=== PATIENT | female | born 1995 | race African-American/Black ===

== ENCOUNTER 2019-04-11 14:10 | Emergency (ER) | payer MEDICAID ==
[~2019-04-11] VITALS: Ht 165.1 cm; Wt 55.9 kg
[2019-04-11 14:27] VITALS: BP 123/71
--- NOTE | 2019-04-11 15:09 | NUR ---
23 Y FEMALE BIB SELF C/O ABD PAIN X6 DAYS. SHARP UPPER ABD PAIN AT 9/10. + N/V/D, AND CHILLS. LAST BM THIS AM, WATERY. ABDOMEN SOFT AND FLAT. BOWEL SOUNDS ACTIVE IN ALL 4 QUADRANTS. TACHY AT 116. PT AA0X4. GAURDING BEHAVIOR. BED IS DOWN, LOCKED, BED RAIL X 1, ERMD TO SEE PT. MEDHX:DENIES RX:DENIES
--- NOTE | 2019-04-11 15:11 | NUR ---
LANS DRAWN BEDSIDE
--- NOTE | 2019-04-11 15:30 | NUR ---
DR HERNANDEZ AT BEDSIDE
[2019-04-11] MEDS ORDERED: LEVOFLOXACIN 500 MG/D5W PREMIX 100 ML IV ONE (15:35)
[2019-04-11] MEDS ORDERED: ONDANSETRON 4 MG/2 ML VIAL IVP ONE (15:35)
--- NOTE | 2019-04-11 15:35 | NUR ---
PT UNABLE TO GIVE URINE
--- NOTE | 2019-04-11 15:46 | NUR ---
PER DR HERNANDEZ VERBAL ORDER, BLOOD CULTURES TO NOT NEED TO BE DRAWN PRIOR TO STARTING LEVAQUIN
[2019-04-11 15:51] LABS: BASOPHILS # (AUTO) 0.1 K/uL (0.00-0.22); EOSINOPHILS # (AUTO) 0.1 K/uL (0-0.4); EOSINOPHILS % (AUTO) 1.3 % (0.0-4.0); HEMATOCRIT 45.9 % (36-48); HEMOGLOBIN 15.2 g/dL (12.0-16.0); LYMPHOCYTES # (AUTO) 1.9 K/uL (2.5-16.5); LYMPHOCYTES % (AUTO) 30.3 % (20.5-51.1); MEAN CORPUSCULAR HEMOGLOBIN 29 pg (27-31); MEAN CORPUSCULAR HGB CONC 33 g/dL (33-37); MEAN CORPUSCULAR VOLUME 88.3 fL (80-94); MONOCYTES # (AUTO) 0.7 K/uL (0.8-1.0); MONOCYTES % (AUTO) 11.6 % (1.7-9.3); NEUTROPHILS # (AUTO) 3.6 K/uL (1.8-7.7); NEUTROPHILS % (AUTO) 55.8 % (42.2-75.2); PLATELET COUNT (AUTO) 284 K/uL (140-450); RED CELL DISTRIBUTION WIDTH 12.8 % (11.6-13.7); WHITE BLOOD COUNT (AUTO) 6.4 K/uL (4.8-10.8)
--- NOTE | 2019-04-11 15:51 | NUR ---
LIGHTS TURNED OFF FOR PT COMFORT. PAIN 07/10. DR HERNANDEZ NOTIFIED
[2019-04-11] MEDS ORDERED: MORPHINE SULFATE 4 MG/ML SYR IVP ONE (16:00)
--- NOTE | 2019-04-11 16:13 | NUR ---
MORPHINE IVP ADMINISTERED. VSS AT THIS TIME.
[2019-04-11 16:19] LABS: ALBUMIN 4.9 g/dL (3.4-5.0); CARBON DIOXIDE 31.6 mmol/L (21-32); CREATININE 1.1 mg/dL (0.6-1.3); TOTAL BILIRUBIN 1.5 mg/dL (0.0-1.0)
[2019-04-11 16:22] LABS: POTASSIUM 2.6 mmol/L (3.5-5.1)
[2019-04-11] MEDS ORDERED: POTASSIUM CHLORIDE 10 MEQ TABER PO ONE (16:35)
--- NOTE | 2019-04-11 18:10 | NUR ---
PATIENT UNABLE TO GIVE URINE AT THIS TIME
[2019-04-11 18:16] VITALS: BP 124/87
--- NOTE | 2019-04-11 18:18 | NUR ---
VSS AT THIS TIME. PAIN 03/10. PT AA0X4. LAYING IN BED.
--- NOTE | 2019-04-11 18:55 | NUR ---
Patient discharged BY DR HERNANDEZ. Patient alert, oriented and Ambulatory with steady gait. ID band removed. Rx of CIPRO AND ZOFRAN given.
== END 2019-04-11 18:55 | disposition home or self-care (01) ==
LOC: MED 14:10
DX: A09 Infectious gastroenteritis and colitis, unspecified (principal)
CPT/HCPCS: 36415; 80053; 82150; 83690; 85025; 96365; 96375; 99283; J1956; J2270; J2405

== ENCOUNTER 2019-04-12 20:43 | Emergency (ER) | payer MEDICAID ==
[~2019-04-12] VITALS: Ht 165.1 cm; Wt 55.8 kg
[2019-04-12 21:04] VITALS: BP 126/56
--- NOTE | 2019-04-12 21:06 | NUR ---
TO LOBBY A/W BED, AMBULATORY WITH MOTHER
--- NOTE | 2019-04-12 21:25 | NUR ---
PT TAKEN TO BED 8
--- NOTE | 2019-04-12 21:35 | NUR ---
PATIENT IS A 24 Y/O FEMALE WHO PRESENTS TO THE ED C/O VOMITING. PT STATES THAT SYMPTOMS HAVE BEEN GOING ON X7 DAYS. PT REPORTS 7/10 ACHING ABD PAIN THAT DOES NOT RADIATE. PT DENIES CP, SOB, REPORTS NAUSEA/VOMITING DENIES DIARRHEA. PT WAS SEEN IN ED YESTERDAY AND GIVEN RX OF ZOFRAN AND CIPRO WITH NO RELIEF. PT AWAKE AND ALERT, RR EVEN/UNLABORED. PT REPOSITIONED FOR COMFORT, BED IN LOWEST POSITION. ER MD DR. HERNANDEZ NOTIFIED. WILL CONTINUE TO MONITOR. PMH---GI PROBLEMS NKA
--- NOTE | 2019-04-12 21:40 | NUR ---
PT GIVEN URINE CUP. PATIENT MADE AWARE ABOUT REQUIRING URINE SAMPLE. PT STATES SHE IS UNABLE TO VOID AT THIS TIME.
--- NOTE | 2019-04-12 22:20 | NUR ---
Dr. Dooley examining patient.
[2019-04-12] MEDS ORDERED: LIDOCAINE VISCOUS 2% 20 ML UDC PO ONE (22:30)
[2019-04-12] MEDS ORDERED: ALUMINUM HYD/MAG/SIMETHICONE 30 ML UDC PO ONE (22:30)
[2019-04-12] MEDS ORDERED: NACL 0.9% 1,000 ML IV ONE ×2 (22:30→23:55)
[2019-04-12] MEDS ORDERED: DICYCLOMINE 20 MG/2 ML VIAL IM ONE (22:30)
[2019-04-12] MEDS ORDERED: ONDANSETRON 4 MG/2 ML VIAL IVP ONE (22:30)
[2019-04-12] MEDS ORDERED: ONDANSETRON 4 MG/2 ML VIAL ONE (22:50)
[2019-04-12 23:09] LABS: BASOPHILS # (AUTO) 0.1 K/uL (0.00-0.22); BASOPHILS % (AUTO) 1.1 % (0.0-2.0); EOSINOPHILS # (AUTO) 0.1 K/uL (0-0.4); EOSINOPHILS % (AUTO) 1.6 % (0.0-4.0); HEMATOCRIT 44.9 % (36-48); LYMPHOCYTES # (AUTO) 1.6 K/uL (2.5-16.5); LYMPHOCYTES % (AUTO) 31.3 % (20.5-51.1); MEAN CORPUSCULAR HEMOGLOBIN 30 pg (27-31); MEAN CORPUSCULAR HGB CONC 33 g/dL (33-37); MEAN CORPUSCULAR VOLUME 88.4 fL (80-94); MONOCYTES # (AUTO) 0.7 K/uL (0.8-1.0); MONOCYTES % (AUTO) 13.3 % (1.7-9.3); NEUTROPHILS # (AUTO) 2.7 K/uL (1.8-7.7); NEUTROPHILS % (AUTO) 52.7 % (42.2-75.2); PLATELET COUNT (AUTO) 262 K/uL (140-450); RED BLOOD CELL COUNT(AUTO) 5.08 MIL/uL (4.20-5.40); RED CELL DISTRIBUTION WIDTH 12.7 % (11.6-13.7); WHITE BLOOD COUNT (AUTO) 5.1 K/uL (4.8-10.8)
[2019-04-12 23:38] LABS: ANION GAP 14.4 (8-16); CARBON DIOXIDE 32.7 mmol/L (21-32); CREATININE 1.3 mg/dL (0.6-1.3); POTASSIUM 3.1 mmol/L (3.5-5.1)
[2019-04-12 23:43] LABS: ALBUMIN 4.7 g/dL (3.4-5.0); TOTAL BILIRUBIN 1.3 mg/dL (0.0-1.0)
--- NOTE | 2019-04-13 00:15 | NUR ---
PATIENT PROVIDED URINE AT THIS TIME.
--- NOTE | 2019-04-13 00:26 | NUR ---
PT TAKEN TO CT
[2019-04-13 00:31] LABS: APPEARANCE,URINE HAZY (CLEAR); BILIRUBIN,URINE 1+ (NEGATIVE); BLOOD, URINE NEGATIVE (NEGATIVE); COLOR,URINE YELLOW (YELLOW); LEUKOCYTE ESTERASE ,URINE NEGATIVE (NEGATIVE); NITRITE, URINE NEGATIVE (NEGATIVE); UGLUCOSE NEGATIVE (NEGATIVE)
--- NOTE | 2019-04-13 00:37 | NUR ---
PT RETURN FROM CT
[2019-04-13 00:46] LABS: RBC,URINE 0-5 /HPF (0-5)
--- NOTE | 2019-04-13 01:07 | NUR ---
PATIENT RESTING AT THIS TIME. NO SIGNS OF DISTRESS.
--- NOTE | 2019-04-13 01:30 | NUR ---
ALL RESULTS BACK AND NOTED BY ERMD AND FOR D/C.
[2019-04-13] MEDS ORDERED: POTASSIUM CHLORIDE 10 MEQ TABER PO ONE (01:35)
[2019-04-13 02:40] VITALS: BP 118/76
--- NOTE | 2019-04-13 02:40 | NUR ---
Patient discharged with v/s stable. Written and verbal after care instructions given and explained. Patient alert, oriented and verbalized understanding of instructions. Ambulatory with by parent. All questions addressed prior to discharge. ID band removed. Patient advised to follow up with PMD. Rx of ZOFRAN 4 MG ODT given. Patient educated on indication of medication including possible reaction and side effects. Opportunity to ask questions provided and answered.
== END 2019-04-13 02:40 | disposition home or self-care (01) ==
LOC: MED 20:43
DX: N39.0 Urinary tract infection, site not specified (principal); R10.84 Generalized abdominal pain; R11.2 Nausea with vomiting, unspecified; G89.29 Other chronic pain
CPT/HCPCS: 36415; 74177; 80053; 81001; 81025; 83690; 85025; 87086; 96361; 96372; 96374; 99284; J0500; J2405; J7030; Q9967; 96360

== ENCOUNTER 2019-06-14 22:27 | Emergency (ER) | payer MEDICAID, OTHER ==
[~2019-06-14] VITALS: Ht 165.1 cm; Wt 61.7 kg
[2019-06-14 22:40] VITALS: BP 131/59
--- NOTE | 2019-06-14 22:43 | NUR ---
TO LOBBY A/W BED VIA WHEELCHAIR
[2019-06-14] MEDS ORDERED: ONDANSETRON 4 MG ODT PO ONE (23:00)
--- NOTE | 2019-06-14 23:15 | NUR ---
PT TAKEN TO BED 12 BY WHEELCHAIR.
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
--- NOTE | 2019-06-14 23:38 | NUR ---
PHLEB AT BEDSIDE DRAWING LABS.
[2019-06-14] MEDS ORDERED: NACL 0.9% 1,000 ML IV ONE (23:55)
[2019-06-14] MEDS ORDERED: ONDANSETRON 4 MG/2 ML VIAL IVP ONE (23:55)
[2019-06-14 23:58] LABS: HEMATOCRIT 39.8 % (36-48); HEMOGLOBIN 13.3 g/dL (12.0-16.0); MEAN CORPUSCULAR HEMOGLOBIN 30 pg (27-31); MEAN CORPUSCULAR HGB CONC 34 g/dL (33-37); MEAN CORPUSCULAR VOLUME 89.1 fL (80-94); PLATELET COUNT (AUTO) 246 K/uL (140-450); RED BLOOD CELL COUNT(AUTO) 4.46 MIL/uL (4.20-5.40); RED CELL DISTRIBUTION WIDTH 12.8 % (11.6-13.7); WHITE BLOOD COUNT (AUTO) 8.4 K/uL (4.8-10.8)
[2019-06-15 00:12] LABS: ANION GAP 17.8 (8-16); CARBON DIOXIDE 23.8 mmol/L (21-32); POTASSIUM 3.6 mmol/L (3.5-5.1)
[2019-06-15 00:19] LABS: ALBUMIN 4.5 g/dL (3.4-5.0); TOTAL BILIRUBIN 0.7 mg/dL (0.0-1.0)
[2019-06-15 00:25] LABS: LYMPHOCYTES % (MANUAL) 9 % (20-46); MONOCYTES % (MANUAL) 2 % (5-12)
[2019-06-15] MEDS ORDERED: MORPHINE SULFATE 4 MG/ML SYR IVP ONE (01:15)
[2019-06-15 02:45] VITALS: BP 126/75
--- NOTE | 2019-06-15 02:45 | NUR ---
Patient discharged with v/s stable. Written and verbal after care instructions given and explained. Patient alert, oriented and verbalized understanding of instructions. Ambulatory with steady gait. All questions addressed prior to discharge. ID band removed. Patient advised to follow up with PMD. Rx of Motrin, Zofran, [place] given. Patient educated on indication of medication including possible reaction and side effects. Opportunity to ask questions provided and answered.
== END 2019-06-15 02:45 | disposition home or self-care (01) ==
LOC: MED 22:27
DX: R10.30 Lower abdominal pain, unspecified (principal); R11.2 Nausea with vomiting, unspecified; R50.9 Fever, unspecified; M54.9 Dorsalgia, unspecified; R19.7 Diarrhea, unspecified
CPT/HCPCS: 36415; 80053; 81002; 81025; 83690; 85025; 96361; 96374; 96375; 99283; J2270; J2405; J7030; Q0162

== ENCOUNTER 2020-08-05 12:38 | Emergency (ER) | payer MEDICAID, OTHER ==
[~2020-08-05] VITALS: Ht 165.1 cm; Wt 60.5 kg
[2020-08-05 13:05] VITALS: BP 135/100
--- NOTE | 2020-08-05 13:13 | NUR ---
VSS. HANDED ON URINE CUP. WAIT AT LOBBY.
--- NOTE | 2020-08-05 14:30 | NUR ---
25 y/o female c/o abdominal pain 06/10 X1 week. Pt states N/V x1 week, unable to eat or drink anything. Pt states she was hospitalized X2days ago, prescribed omeprazole, no relief. Abdomen is flat, soft tender at RUQ and LUQ. Pt is guarding. Last BM about 1 week ago, bowel sounds are present. Denies PMH, RX. NKA
[2020-08-05 14:45] LABS: BASOPHILS # (AUTO) 0.1 K/uL (0.00-0.22); EOSINOPHILS # (AUTO) 0.1 K/uL (0-0.4); EOSINOPHILS % (AUTO) 2.2 % (0.0-4.0); HEMATOCRIT 46.9 % (36-48); HEMOGLOBIN 15.5 g/dL (12.0-16.0); LYMPHOCYTES # (AUTO) 2.3 K/uL (2.5-16.5); LYMPHOCYTES % (AUTO) 36.5 % (20.5-51.1); MEAN CORPUSCULAR HEMOGLOBIN 29 pg (27-31); MEAN CORPUSCULAR HGB CONC 33 g/dL (33-37); MONOCYTES # (AUTO) 0.9 K/uL (0.8-1.0); MONOCYTES % (AUTO) 14.2 % (1.7-9.3); NEUTROPHILS # (AUTO) 2.9 K/uL (1.8-7.7); NEUTROPHILS % (AUTO) 46.1 % (42.2-75.2); PLATELET COUNT (AUTO) 268 K/uL (140-450); RED BLOOD CELL COUNT(AUTO) 5.33 MIL/uL (4.20-5.40); RED CELL DISTRIBUTION WIDTH 12.3 % (11.6-13.7); WHITE BLOOD COUNT (AUTO) 6.2 K/uL (4.8-10.8)
[2020-08-05 14:49] LABS: APPEARANCE,URINE HAZY (CLEAR); BILIRUBIN,URINE 1+ (NEGATIVE); BLOOD, URINE TRACE-I (NEGATIVE); COLOR,URINE YELLOW (YELLOW); LEUKOCYTE ESTERASE ,URINE NEGATIVE (NEGATIVE); NITRITE, URINE NEGATIVE (NEGATIVE); PH,URINE 5.5 (5.0-9.0); UGLUCOSE NEGATIVE (NEGATIVE)
[2020-08-05] MEDS ORDERED: ONDANSETRON 4 MG ODT PO ONE (14:50)
--- NOTE | 2020-08-05 14:54 | NUR ---
Dr Parsons at bedside examining patient
[2020-08-05 14:57] LABS: ALBUMIN 4.9 g/dL (3.4-5.0); ANION GAP 14.4 (8-16); CARBON DIOXIDE 32.1 mmol/L (21-32); CREATININE 0.9 mg/dL (0.6-1.3); POTASSIUM 3.5 mmol/L (3.5-5.1); TOTAL BILIRUBIN 1.3 mg/dL (0.0-1.0)
[2020-08-05] MEDS ORDERED: HALOPERIDOL IM 5 MG/ML VIAL IM STA (14:58)
--- NOTE | 2020-08-05 15:00 | NUR ---
Pt to xray via wheelchair
[2020-08-05 15:08] LABS: WBC,URINE 0-5 /HPF (0-5)
[2020-08-05] MEDS ORDERED: diphenhydrAMINE 50 MG/ML VIAL IM ONE (15:30)
--- NOTE | 2020-08-05 15:31 | NUR ---
Pt stating she is feeling agitated and is diaphoretic after receiving benadryl. Dr Parsons made aware, at bedside examining pt.
[2020-08-05] MEDS ORDERED: LORazepam 2 MG/ML VIAL IM STA (15:32)
[2020-08-05] MEDS ORDERED: LORazepam 2 MG/ML VIAL ONE (15:33)
--- NOTE | 2020-08-05 16:01 | NUR ---
Pt sleeping, VSS stable, will continue to monitor.
--- NOTE | 2020-08-05 16:48 | NUR ---
Patient awake, alert, and verbal. Pt calling brother for ride home.
[2020-08-05 16:58] VITALS: BP 122/81
--- NOTE | 2020-08-05 16:59 | NUR ---
Patient discharged with v/s stable. Written and verbal after care instructions given and explained. Patient alert, oriented and verbalized understanding of instructions. Ambulatory with by caregiver. All questions addressed prior to discharge. ID band removed. Patient advised to follow up with PMD. Rx of capsaicin 0.025% topical 1 BID for N/v, reglan 5mg tab PO TID with benadryl N/V, given. Patient educated on indication of medication including possible reaction and side effects. Opportunity to ask questions provided and answered.
== END 2020-08-05 16:59 | disposition home or self-care (01) ==
LOC: MED 12:38
DX: R11.2 Nausea with vomiting, unspecified (principal); F12.90 Cannabis use, unspecified, uncomplicated
CPT/HCPCS: 36415; 74021; 80053; 81001; 81025; 83690; 85025; 87086; 96372; 99284; J1200; J1630; J2060; Q0162; Q0163

== ENCOUNTER 2022-03-13 12:06 | Emergency (ER) | payer MEDICAID ==
[~2022-03-13] VITALS: Ht 165.1 cm; Wt 56.7 kg
--- NOTE | 2022-03-13 12:10 | NUR ---
PT BIB WHEELCHAIR TO BED 06.
[2022-03-13 12:15] VITALS: BP 147/92
[2022-03-13] MEDS ORDERED: ONDANSETRON 4 MG/2 ML VIAL IVP ONE ×2 (12:20→14:55)
[2022-03-13] MEDS ORDERED: NACL 0.9% 1,000 ML IV ONE (12:20)
[2022-03-13] MEDS ORDERED: KETOROLAC 30 MG/ML VIAL IVP ONE (12:20)
--- NOTE | 2022-03-13 12:34 | NUR ---
DR ROBERTS AT BEDSIDE EVALUATING PT
--- NOTE | 2022-03-13 13:30 | NUR ---
LAB AT BEDSIDE
[2022-03-13] MEDS ORDERED: POTASSIUM CHLORIDE 10 MEQ TABER PO ONE (13:50)
[2022-03-13] MEDS ORDERED: ONDA8TAB87 PO (14:12)
[2022-03-13] MEDS ORDERED: OMEP40EC24 PO (14:12)
[2022-03-13] MEDS ORDERED: IBUP-2213 PO (14:12)
[2022-03-13] MEDS ORDERED: ONDANSETRON 4 MG/2 ML VIAL ONE (14:46)
--- NOTE | 2022-03-13 15:05 | NUR ---
IV removed, catheter intact and site benign. Applied folded 4x4 gauze and tape to stop bleeding.
[2022-03-13 15:10] VITALS: BP 146/92
--- NOTE | 2022-03-13 15:13 | NUR ---
Patient discharged with v/s stable. Written and verbal after care instructions FOR NAUSEA, VOMITING AND ABDOMINAL PAIN given and explained. Patient alert, oriented and verbalized understanding of instructions. Ambulatory with steady gait. All questions addressed prior to discharge. ID band removed. Patient advised to follow up with PMD. Rx of IBUPROFEN, OMEPRAZOLE, AND ZOFRAN given. Opportunity to ask questions provided and answered.
--- NOTE | 2022-03-13 15:14 | NUR ---
The patient's care was reviewed and supervised by Layla Murray RN.
== END 2022-03-13 15:13 | disposition home or self-care (01) ==
LOC: MED 12:06
DX: R10.13 Epigastric pain (principal); R50.9 Fever, unspecified; R11.2 Nausea with vomiting, unspecified
CPT/HCPCS: 81002; 81025; 96361; 96374; 96375; 96376; 99284; J1885; J2405; J7030

== ENCOUNTER 2022-08-06 09:17 | Emergency (ER) | payer MEDICAID ==
[~2022-08-06] VITALS: Ht 165.1 cm; Wt 55.6 kg
[~2022-08-06 09:17] MED LIST: IBUP-2213 PO; OMEP40EC24 PO; ONDA8TAB87 PO
[2022-08-06 09:23] VITALS: BP 115/76
--- NOTE | 2022-08-06 10:02 | NUR ---
C/O COUGH, SORE THROAT, MYALGIA AND NASAL CONGESTION, MARVIN, DIARRHEA X3DAYS NKA PMH: DENIES
--- NOTE | 2022-08-06 10:59 | NUR ---
PT SEEN WALKING OUT OF THE ER WITH BOYFRIEND, STEADY GAIT
--- NOTE | 2022-08-06 11:10 | NUR ---
PT RETURN BACK TO LOBBY STATING THAT SHE'S GOING TO WAIT OUTSIDE
[2022-08-06] MEDS ORDERED: BENZ200C4 PO (11:16)
[2022-08-06 11:23] VITALS: BP 108/64
--- NOTE | 2022-08-06 11:23 | NUR ---
Patient discharged with v/s stable. Written and verbal after care instructions given and explained. Patient verbalized understanding. Ambulatory with steady gait. All questions addressed prior to discharge. Advised to follow up with PMD.
== END 2022-08-06 11:23 | disposition home or self-care (01) ==
LOC: MED 09:17
DX: B34.9 Viral infection, unspecified (principal); Z20.822 Contact with and (suspected) exposure to COVID-19; Z79.899 Other long term (current) drug therapy
CPT/HCPCS: 99283

== ENCOUNTER 2022-10-14 09:20 | Emergency (ER) | payer MEDICAID ==
[~2022-10-14] VITALS: Ht 165.1 cm; Wt 59.4 kg
[~2022-10-14 09:20] MED LIST changes: +BENZ200C4 PO
[2022-10-14 09:32] VITALS: BP 147/96
--- NOTE | 2022-10-14 09:37 | NUR ---
HERE FOR ABD PAIN W NAUSEA AND VOMITING NO OPEN ROOMS AT THIS TIME URINE CUP GIVEN, PT BACK TO LOBBY, AMBULATORY AND STEADY GAIT
--- NOTE | 2022-10-14 10:38 | NUR ---
REQUESTED URINE, NOT ABLE TO URINATE AT THIS TIME
[2022-10-14] MEDS ORDERED: METOCLOPRAMIDE 10 MG/2 ML INJ VIAL IVP ONE (11:00)
[2022-10-14] MEDS ORDERED: NACL 0.9% 1,000 ML IV SCH (11:00)
[2022-10-14] MEDS ORDERED: diphenhydrAMINE 50 MG/ML VIAL IVP ONE (11:00)
[2022-10-14 11:45] LABS: BASOPHILS # (AUTO) 0.1 K/uL (0.00-0.22); BASOPHILS % (AUTO) 0.6 % (0.0-2.0); EOSINOPHILS % (AUTO) 0.3 % (0.0-4.0); HEMOGLOBIN 13.4 g/dL (12.0-16.0); LYMPHOCYTES # (AUTO) 2.7 K/uL (2.5-16.5); LYMPHOCYTES % (AUTO) 26.9 % (20.5-51.1); MEAN CORPUSCULAR HEMOGLOBIN 30 pg (27-31); MEAN CORPUSCULAR HGB CONC 34 g/dL (33-37); MEAN CORPUSCULAR VOLUME 88.1 fL (80-94); MONOCYTES % (AUTO) 9.9 % (1.7-9.3); NEUTROPHILS # (AUTO) 6.2 K/uL (1.8-7.7); NEUTROPHILS % (AUTO) 62.3 % (42.2-75.2); PLATELET COUNT (AUTO) 254 K/uL (140-450); RED BLOOD CELL COUNT(AUTO) 4.54 MIL/uL (4.20-5.40)
[2022-10-14 12:11] LABS: APPEARANCE,URINE CLEAR (CLEAR); BILIRUBIN,URINE 1+ (NEGATIVE); BLOOD, URINE TRACE-I (NEGATIVE); COLOR,URINE YELLOW (YELLOW); LEUKOCYTE ESTERASE ,URINE NEGATIVE (NEGATIVE); NITRITE, URINE NEGATIVE (NEGATIVE); UGLUCOSE NEGATIVE (NEGATIVE)
[2022-10-14 12:12] LABS: ALBUMIN 5.1 g/dL (3.4-5.0); ANION GAP 14.3 (8-16); CARBON DIOXIDE 29.5 mmol/L (21-32); CREATININE 0.8 mg/dL (0.6-1.3)
[2022-10-14 12:17] LABS: POTASSIUM 2.8 mmol/L (3.5-5.1)
[2022-10-14 12:35] LABS: RBC,URINE NONE SEEN /HPF (0-5); WBC,URINE NONE SEEN /HPF (0-5)
[2022-10-14 12:37] LABS: YEAST,URINE None Seen /HPF (None Seen)
[2022-10-14 12:38] LABS: TRICHOMONAS,URINE None Seen /HPF (None Seen)
[2022-10-14] MEDS ORDERED: POTASSIUM CHLORIDE 20% 40 MEQ/15 ML UDC PO ONE (13:00)
[2022-10-14] MEDS ORDERED: ONDA-188 SL (13:04)
[2022-10-14 13:26] VITALS: BP 118/78
== END 2022-10-14 13:27 | disposition home or self-care (01) ==
LOC: MED 09:20
DX: R10.9 Unspecified abdominal pain (principal); E87.6 Hypokalemia
CPT/HCPCS: 36415; 80053; 81001; 81025; 83690; 85025; 96361; 96374; 96375; 99284; J1200; J2765; J7030

== ENCOUNTER 2022-10-17 19:15 | Emergency (ER) | payer MEDICAID ==
[~2022-10-17 19:15] MED LIST changes: +ONDA-188 SL
--- NOTE | 2022-10-17 20:26 | NUR ---
Called no show in lobby or outside.
--- NOTE | 2022-10-17 20:28 | NUR ---
Patient left before triage.
== END 2022-10-17 20:26 | disposition left against medical advice (07) ==
LOC: MED 19:15
DX: M79.18 Myalgia, other site (principal); Z53.21 Procedure and treatment not carried out due to patient leaving prior to being seen by health care provider